=== PATIENT | female | born 1975 | race Caucasian/White ===

== ENCOUNTER 2018-02-09 16:05 | Outpatient (CLI) | payer OTHER ==
--- NOTE | 2018-02-09 16:34 | RAD ---
CHEST TWO VIEWS: 02/09/18 HISTORY: Dyspnea. FINDINGS: The cardiac silhouette and pulmonary vasculature are unremarkable. Lungs are hyperinflated. Mediastin um is midline. There is no confluent air space consolidation, pneumothorax or pleural fluid apparent. IMPRESSION: Pulmonary hyperinflation. Cause is not evident. POS: [facility]
== END 2018-02-09 16:06 | disposition home or self-care (01) ==
LOC: RAD 16:05
PROVIDERS: ATTEND Nurse Practitioner Family
DX: R06.02 Shortness of breath (principal); R91.8 Other nonspecific abnormal finding of lung field
CPT/HCPCS: 71046

== ENCOUNTER 2018-08-31 08:35 | Outpatient (CLI) | payer OTHER ==
--- NOTE | 2018-08-31 10:08 | ULT ---
PELVIC ULTRASOUND WITH DOPPLER: (Transabdominal, transvaginal, and beckett scale, color flow and spectral Doppler) HISTORY: Pelvic pain. FINDINGS: The uterus measures 9.8 x 4.2 x 5.4 cm without solid mass or endometrial fluid. There is a 9 x 6.9 m m focal anechoic cyst in the lower uterine segment. The endometrium measures 6 mm in thickness. The right ovary measures 3.4 x 3 x 3.4 cm and the left ovary measures 3.1 x 2.7 x 2.2 cm. Flow is de monstrated to both ovaries. Cyst in the right ovary measures 1.8 cm and in the left ovary measures 2 cm. No free fluid is seen in the cul-de-sac. IMPRESSION: No significant abnormalities are identified. POS: [facility]
== END 2018-08-31 08:36 | disposition home or self-care (01) ==
LOC: BICULT 08:35
PROVIDERS: ATTEND Physician Assistant
DX: R10.2 Pelvic and perineal pain (principal)
CPT/HCPCS: 76856

== ENCOUNTER 2019-08-27 15:39 | Outpatient (CLI) | payer OTHER ==
--- NOTE | 2019-08-27 16:10 | RAD ---
Exam: XR Hand Rt 3 View STANDARD HISTORY: Right hand pain COMPARISON: None FINDINGS: No acute fracture, dislocation, or other acute osseous abnormality is identified. IMPRESSION: No acute osseous abnormality is identified.
== END 2019-08-27 15:40 | disposition home or self-care (01) ==
LOC: BICRAD 15:39
PROVIDERS: ATTEND Physician Assistant
DX: M79.641 Pain in right hand (principal)

== ENCOUNTER 2021-11-17 15:59 | Outpatient (CLI) | payer BC | END 2021-11-17 16:00 | disposition home or self-care (01) | LOC: CT 15:59 | PROVIDERS: ATTEND Family Medicine | DX: R10.33 Periumbilical pain (principal); N28.1 Cyst of kidney, acquired; N20.0 Calculus of kidney | CPT/HCPCS: 74177 ==

== ENCOUNTER 2022-12-16 11:27 | Outpatient (CLI) | payer BC | END 2022-12-16 11:28 | disposition home or self-care (01) | LOC: BICMAMMO 11:27 | PROVIDERS: ATTEND Physician Assistant | DX: Z12.31 Encounter for screening mammogram for malignant neoplasm of breast (principal); N64.89 Other specified disorders of breast | CPT/HCPCS: 77063; 77067 ==

== ENCOUNTER 2022-12-30 08:19 | Outpatient (CLI) | payer BC | END 2022-12-30 08:20 | disposition home or self-care (01) | LOC: BICMAMMO 08:19 | PROVIDERS: ATTEND Physician Assistant | DX: N64.89 Other specified disorders of breast (principal) | CPT/HCPCS: G0279 ==

== ENCOUNTER 2024-05-17 13:35 | Outpatient (CLI) | payer BC | END 2024-05-17 13:36 | disposition home or self-care (01) | LOC: BICCT 13:35 | PROVIDERS: ATTEND Psychiatry & Neurology Neurology | DX: R51.9 Headache, unspecified (principal); M26.69 Other specified disorders of temporomandibular joint; Q04.8 Other specified congenital malformations of brain | CPT/HCPCS: 70450 ==